=== PATIENT | male | born 1935 | race Caucasian/White ===

== ENCOUNTER 2016-09-13 20:06 | Emergency (ER) | payer OTHER ==
[2016-09-13 20:10] VITALS: BP 116/87; TEMP 97.1; BMI 23.1
[2016-09-13] MEDS ORDERED: DUONEB NEB STA (20:22)
--- NOTE | 2016-09-13 20:35 | ED.PDOC ---
General ED Provider: Dr. LUIS M ALVARADO Chief Complaint: Shortness of Air Stated Complaint: Been short of breath for couple days, it is getting better and its worse today,. not seen doctor for 10-15 years, Time Seen by Physician: 20:29 Mode of Arrival: Walk-In Information Source: Patient, Family Nursing and Triage Documentation Reviewed and Agree: Yes Respiratory Complaint Exam - Shortness of Air Complaint/Exam Symptoms Are: Still present Timing: Constant Initial Severity: Severe Current Severity: Severe Character: Reports: Dyspnea at rest Alleviating: Reports: None Associated Signs and Symptoms: Reports: Cough, Rapid breathing. Denies: Wheezing, Chest pain with cough, Chest pain, Fever, Chills, Diaphoresis, Nasal congestion, Dizziness, Calf pain, Calf swelling, Edema, Labored breathing, Decreased intake History of Healthcare-Acquired Pneumonia: No Pulmonary Embolism Risk Factors: Reports: None Cardiac Risk Factors: Reports: Smoking Pseudomonas Risk Factors: Reports: None Home Oxygen Use: No Recent Stress Test: No Recent Echo/LV Function: No Respiratory Distress: Moderate Stridor Present: No Tracheal Deviation: No Subcutaneous Emphysema: No Accessory Muscle Use: Yes Retractions: Nasal Flaring, Supraclavicular Diminished Breath Sounds: Yes Prolonged Expiratory Phase: No Unable to Speak Full Sentences: No Fatigue: No Leg Swelling: No Differential Diagnoses: COPD Exacerbation, DC, Unstable Angina, Pneumonia Quality Indicators for AMI: EKG in 10min. Review of Systems - Review Of Systems Constitutional: Reports: Malaise, Weakness Eyes: Reports: No symptoms Ears, Nose, Mouth, Throat: Reports: No symptoms Respiratory: Reports: Orthopnea, Short of air Cardiac: Reports: No symptoms GI: Reports: No symptoms : Reports: No symptoms Musculoskeletal: Reports: No symptoms Skin: Reports: No symptoms Neurological: Reports: No symptoms Endocrine: Reports: No symptoms Hematologic/Lymphatic: Reports: No symptoms All Other Systems: Reviewed and Negative Past Medical History - Past Medical History Previously Healthy: Yes Endocrine: Reports: None Cardiovascular: Reports: None Respiratory: Reports: None Hematological: Reports: None Gastrointestinal: Reports: None Genitourinary: Reports: None Neuro/Psych: Reports: None Musculoskeletal: Reports: None Cancer: Reports: None - Surgical History General Surgical History: Reports: Orthopedic (hand repair) - Family History Family History: Reports: None - Social History Smoking Status: Current every day smoker, Heavy tobacco smoker Smoking Cessation Counseling Time: > 10 min Hx Substance Use: No Alcohol Screening: None Physical Exam - Physical Exam Appearance: Ill-appearing, Thin Ill-appearing: Moderate Eyes: ASHANTI, EOMI, Conjunctiva clear ENT: Ears normal, Nose normal, Oropharynx normal Respiratory: Airway patent, Breath sounds diminished Cardiovascular: Tachycardia GI/: Soft, Nontender, No masses, Bowel sounds normal, No Organomegaly Musculoskeletal: Normal strength, ROM intact, No edema, No calf tenderness Skin: Warm, Dry, Normal color Neurological: Sensation intact, Motor intact, Reflexes intact, Cranial nerves intact, Alert, Oriented Psychiatric: Affect appropriate, Mood appropriate Interpretation - Measurement Superintendent Time of Measurement Superintendent Interpretation: 20:30 Rate: Tachy Rhythm: Other (pacs) - EKG Interpretation Time of EKG #1: 20:30 Rate: Tachy Rhythm: Sinus Ectopy: PACs ST Segment: Other (elevation 2,3,avf) Critical Care Note - Critical Care Note Total Time (mins): 0 Course - Course Hematology/Chemistry: 09/13/16 20:30 Orders, Labs, Meds: Lab Review 09/13/16 09/13/16 20:12 20:30 WBC 15.54 H RBC 5.93 Hgb 17.5 Hct 52.0 MCV 87.7 MCH 29.5 MCHC 33.7 RDW Coeff of Isha 12.3 Plt Count 254 Immature Gran % (Auto) 0.6 Neut % (Auto) 85.6 Lymph % (Auto) 6.2 L Bollinger % (Auto) 6.6 Eos % (Auto) 0.6 Baso % (Auto) 0.4 Immature Gran # (Auto) 0.1 Neut # 13.3 H Lymph # 1.0 Bollinger # 1.0 Eos # 0.1 Baso # 0.1 Puncture Site Lb O2 Saturation 93.0 L ABG pH 7.389 ABG pCO2 44.5 ABG pO2 70.0 L ABG HCO3 26.9 H ABG Total CO2 28 ABG Base Excess 2 Yusef Test + O2 Delivery Device Nc Oxygen Liter Flow 2.00 FiO2 % 28.0 Orders Category Date Time Status ABG DRAW REQUEST Stat CARDIO 09/13/16 20:13 Completed EKG-(ED ONLY) Stat CARDIO 09/13/16 20:12 Completed NEBULIZER TREATMENT Stat CARDIO 09/13/16 20:22 Completed ABG Stat LAB 09/13/16 20:12 Completed B-TYPE NATRIURETIC PEPTIDE Stat LAB 09/13/16 20:30 Received BLOOD CULTURE Stat LAB 09/13/16 20:30 Received CBC W/ AUTO DIFF Stat LAB 09/13/16 20:30 Completed COMPREHENSIVE METABOLIC PANEL Stat LAB 09/13/16 20:30 Received CREATINE KINASE Stat LAB 09/13/16 20:30 Received D-DIMER Stat LAB 09/13/16 20:30 Received LACTIC ACID Stat LAB 09/13/16 20:30 Received PROCALCITONIN Stat LAB 09/13/16 20:30 Received TROPONIN I Stat LAB 09/13/16 20:30 Received Aspirin [Aspirin Chewable] MEDS 09/13/16 20:36 Discontinued 324 mg PO ONCE STA Enoxaparin Sodium [Lovenox] MEDS 09/13/16 20:54 Stat 40 mg IVP ONCE STA Enoxaparin Sodium [Lovenox] MEDS 09/13/16 21:00 Ordered 40 mg SUBCUT DAILY Ipratropium/Albuterol Neb [Duoneb] MEDS 09/13/16 20:22 Discontinued 1 vial NEB ONCE STA Morphine Sulfate [Morphine 2 mg/ml Syringe] MEDS 09/13/16 20:36 Discontinued 2 mg IVP ONCE STA CT CHEST W/O CONTRAST Stat RADS 09/13/16 20:22 Taken Medications Generic Name Dose Route Start Last Admin Trade Name Freq PRN Reason Stop Dose Admin Enoxaparin Sodium 40 mg 09/13/16 20:54 Lovenox IVP 09/13/16 20:55 ONCE STA Enoxaparin Sodium 40 mg 09/13/16 21:00 Lovenox SUBCUT DAILY JODI Discontinued Medications Generic Name Dose Route Start Last Admin Trade Name Freq PRN Reason Stop Dose Admin Albuterol/Ipratropium 1 vial 09/13/16 20:22 09/13/16 20:25 Duoneb NEB 09/13/16 20:23 1 vial ONCE STA Administration Aspirin 324 mg 09/13/16 20:36 09/13/16 20:43 Aspirin Chewable PO 09/13/16 20:37 324 mg ONCE STA Administration Morphine Sulfate 2 mg 09/13/16 20:36 09/13/16 20:45 Morphine 2 Mg/Ml Syringe IVP 09/13/16 20:37 2 mg ONCE STA Administration Vital Signs: Temp Pulse Resp BP Pulse Ox 09/13/16 20:06 97.1 F L 126 H 28 H 116/87 92 L Departure - Departure Time of Disposition: 20:39 Disposition: TSF OTHER Discharge Problem: AMI inferior wall, Shortness of breath Instructions: Angina (ED) Condition: Poor Pt referred to PMD for follow-up: No Additional Instructions: Dr Arriaga. Allergies/Adverse Reactions: Allergies No Known Allergies Allergy (Verified 09/13/16 20:10) Home Medications: Ambulatory Orders 1 [No Reported Medications] 09/13/16 Transfer Form Completed: Yes Disposition Discussed With: Patient, Family
[2016-09-13] MEDS ORDERED: ASPIRIN CHEWABLE PO STA (20:36)
[2016-09-13] MEDS ORDERED: MORPHINE 2 MG/ML SYRINGE IVP STA (20:36)
[2016-09-13 20:37] LABS: BASOPHILS # (AUTO) 0.1 K/uL (0-0.2); BASOPHILS % (AUTO) 0.4 % (0.0-3.0); EOSINOPHILS # (AUTO) 0.1 K/ul (0.0-0.7); EOSINOPHILS % (AUTO) 0.6 % (0.0-7.0); HEMOGLOBIN 17.5 g/dl (14.0-18.0); IMMATURE GRANULOCYTE % (AUTO) 0.6 % (0.0-5.0); LYMPHOCYTES % (AUTO) 6.2 (10.0-50.0); MEAN CORPUSCULAR HEMOGLOBIN 29.5 pg (27.0-31.0); MEAN CORPUSCULAR HGB CONC 33.7 (31.8-35.4); MEAN CORPUSCULAR VOLUME 87.7 fl (80.0-94.0); MONOCYTES % (AUTO) 6.6 (0-10); NEUTROPHILS # (AUTO) 13.3 K/ul (2.0-6.9); NEUTROPHILS % (AUTO) 85.6; PLATELET COUNT 254 10^3/uL (140-440); RED BLOOD COUNT 5.93 10^6/ul (4.70-6.10); WHITE BLOOD COUNT 15.54 K/ul (4.2-10.2)
[2016-09-13 20:38] LABS: ABG BASE EXCESS 2 (-2.0-2.0); ABG HCO3 26.9 (22.0-26.0); ABG PCO2 44.5 mmHg (35-45); ABG PH 7.389 (7.35-7.45); ABG TCO2 28 (22.0-28.0)
[2016-09-13] MEDS ORDERED: LOVENOX IVP STA (20:54)
[2016-09-13] MEDS ORDERED: LOVENOX ONE (20:55)
[2016-09-13] MEDS ORDERED: LOVENOX SUBCUT ONE (20:59)
[2016-09-13] MEDS ORDERED: LOVENOX SUBCUT SCH (21:00)
[2016-09-13 21:31] LABS: ALBUMIN 3.9 g/dL (3.4-5.0); ALBUMIN/GLOBULIN RATIO 1.08; ANION GAP 13.3; BILIRUBIN,TOTAL 1.35 mg/dL (0.00-1.20); BUN/CREATININE RATIO 12.24; CALCIUM 9.8 mg/dL (8.2-10.2); CREATININE 0.98 mg/dL (0.60-1.10); POTASSIUM 4.3 mmol/L (3.5-5.1); TOTAL PROTEIN 7.5 g/dL (5.8-8.1)
[2016-09-13 21:37] LABS: CREATINE KINASE MB 148.2 ng/ml (0.0-3.6); TROPONIN I 9.348 ng/ml (0.0000-0.4000)
--- NOTE | 2016-09-13 21:46 | CT ---
EXAM: CT of the chest without contrast. HISTORY: Shortness of breath. PROCEDURE: Contiguous axial CT images of the chest without contrast with coronal and sagittal refor mats. FINDINGS: The heart is within normal limits in size. The thoracic aorta is within normal limits in diameter. There are coronary artery calcifications. There are emphysematous changes throughout both lungs. There is 1 cm nodule in the right middle lobe. There is minimal right basilar dependent atel ectasis. There is a 0.3 cm nodule in the right upper lobe. There are nodular infiltrates in the righ t lower lobe. There is biapical scarring. There are degenerative changes in the spine. Impression: Nodular infiltrates in the right lower lobe suspicious for pneumonia. Minimal right basilar atelectasis. Two nodules in the right lung measuring up to 1 cm. Recommend follow-up CT in [address] ability. Chronic obstructive pulmonary disease.
== END 2016-09-13 21:37 | disposition short-term general hospital (02) ==
LOC: ED 20:06
DX: I21.19 ST elevation (STEMI) myocardial infarction involving other coronary artery of inferior wall (principal); R06.02 Shortness of breath; F17.210 Nicotine dependence, cigarettes, uncomplicated
CPT/HCPCS: 36415; 80053; 82550; 82553; 82803; 83605; 83880; 84145; 84484; 85025; 85379; 87040; 93005; 93010; 94640; 96372; 96374; 96375; 99285

== ENCOUNTER 2016-09-13 21:14 | Outpatient (CLI) ==
[2016-09-13 20:10] VITALS: BMI 23.1
== END 2016-09-13 21:15 | disposition home or self-care (01) ==
LOC: AMBL 21:14
PROVIDERS: ATTEND Emergency Medicine
DX: I21.3 ST elevation (STEMI) myocardial infarction of unspecified site (principal); R06.02 Shortness of breath; R00.0 Tachycardia, unspecified

== ENCOUNTER 2016-10-03 11:39 | Outpatient (CLI) | payer OTHER | END 2016-10-03 11:40 | disposition home or self-care (01) | LOC: AMBL 11:39 | PROVIDERS: ATTEND Emergency Medicine | DX: R06.9 Unspecified abnormalities of breathing (principal); J44.9 Chronic obstructive pulmonary disease, unspecified ==

== ENCOUNTER 2016-10-31 08:52 | Outpatient (RCR) ==
[2016-10-31 09:16] VITALS: TEMP 98.4; BMI 19.2
[2016-11-16 10:51] VITALS: BP 114/52
== END 2016-11-16 ==
LOC: CAR.REHAB 08:52
PROVIDERS: ATTEND Internal Medicine Cardiovascular Disease
DX: I21.3 ST elevation (STEMI) myocardial infarction of unspecified site (principal); Z95.5 Presence of coronary angioplasty implant and graft
CPT/HCPCS: 93798

== ENCOUNTER 2016-11-17 10:59 | Outpatient (RCR) ==
[2016-12-16 10:55] VITALS: BP 106/54
== END 2016-12-16 ==
LOC: CAR.REHAB 10:59
PROVIDERS: ATTEND Internal Medicine Cardiovascular Disease
DX: I21.3 ST elevation (STEMI) myocardial infarction of unspecified site (principal); Z95.5 Presence of coronary angioplasty implant and graft
CPT/HCPCS: 93798

== ENCOUNTER 2016-12-19 06:56 | Outpatient (RCR) ==
[2017-01-16 10:46] VITALS: BP 112/64
== END 2017-01-16 ==
LOC: CAR.REHAB 06:56
PROVIDERS: ATTEND Internal Medicine Cardiovascular Disease
DX: I21.3 ST elevation (STEMI) myocardial infarction of unspecified site (principal); Z95.5 Presence of coronary angioplasty implant and graft
CPT/HCPCS: 93798

== ENCOUNTER 2017-01-17 08:29 | Outpatient (RCR) ==
[2017-02-10 11:12] VITALS: BP 108/56
== END 2017-02-10 14:34 | disposition home or self-care (01) ==
LOC: CAR.REHAB 08:29
PROVIDERS: ATTEND Internal Medicine Cardiovascular Disease
DX: I25.2 Old myocardial infarction (principal); Z95.5 Presence of coronary angioplasty implant and graft
CPT/HCPCS: 93798

== ENCOUNTER 2017-02-13 09:16 | Outpatient (RCR) ==
[2017-02-15 10:44] VITALS: BP 108/56
== END 2017-02-16 ==
LOC: CAR.REHAB 09:16
PROVIDERS: ATTEND Internal Medicine
DX: I25.10 Atherosclerotic heart disease of native coronary artery without angina pectoris (principal); I25.2 Old myocardial infarction; Z95.5 Presence of coronary angioplasty implant and graft
CPT/HCPCS: 93797

== ENCOUNTER 2017-02-17 07:20 | Outpatient (RCR) ==
[2017-03-17 10:53] VITALS: BP 114/58
== END 2017-03-18 ==
LOC: CAR.REHAB 07:20
PROVIDERS: ATTEND Internal Medicine
DX: I25.10 Atherosclerotic heart disease of native coronary artery without angina pectoris (principal); I21.3 ST elevation (STEMI) myocardial infarction of unspecified site; Z95.5 Presence of coronary angioplasty implant and graft
CPT/HCPCS: 93797

== ENCOUNTER 2017-04-19 07:04 | Outpatient (RCR) ==
[2017-05-17 10:57] VITALS: BP 116/56
== END 2017-05-18 ==
LOC: CAR.REHAB 07:04
PROVIDERS: ATTEND Internal Medicine
DX: I25.10 Atherosclerotic heart disease of native coronary artery without angina pectoris (principal); I25.2 Old myocardial infarction; Z95.5 Presence of coronary angioplasty implant and graft
CPT/HCPCS: 93797

== ENCOUNTER 2017-05-19 06:32 | Outpatient (RCR) ==
[2017-06-07 10:48] VITALS: BP 130/56
== END 2017-06-18 ==
LOC: CAR.REHAB 06:32
PROVIDERS: ATTEND Internal Medicine
DX: I25.10 Atherosclerotic heart disease of native coronary artery without angina pectoris (principal); I25.2 Old myocardial infarction; Z95.5 Presence of coronary angioplasty implant and graft
CPT/HCPCS: 93797

== ENCOUNTER 2017-06-20 07:02 | Outpatient (RCR) | END 2017-07-19 | LOC: CAR.REHAB 07:02 | PROVIDERS: ATTEND Internal Medicine | DX: I25.10 Atherosclerotic heart disease of native coronary artery without angina pectoris (principal); I25.2 Old myocardial infarction; Z95.5 Presence of coronary angioplasty implant and graft ==

== ENCOUNTER 2017-07-20 07:22 | Outpatient (RCR) | END 2017-08-16 | LOC: CAR.REHAB 07:22 | PROVIDERS: ATTEND Internal Medicine | DX: I25.10 Atherosclerotic heart disease of native coronary artery without angina pectoris (principal); I25.2 Old myocardial infarction; Z95.5 Presence of coronary angioplasty implant and graft ==

== ENCOUNTER 2017-08-17 07:02 | Outpatient (RCR) | END 2017-09-16 | LOC: CAR.REHAB 07:02 | PROVIDERS: ATTEND Internal Medicine | DX: I25.10 Atherosclerotic heart disease of native coronary artery without angina pectoris (principal); I25.2 Old myocardial infarction; Z95.5 Presence of coronary angioplasty implant and graft ==

== ENCOUNTER 2017-09-18 06:46 | Outpatient (RCR) | END 2017-09-29 10:49 | disposition home or self-care (01) | LOC: CAR.REHAB 06:46 | PROVIDERS: ATTEND Internal Medicine | DX: I25.10 Atherosclerotic heart disease of native coronary artery without angina pectoris (principal); I25.2 Old myocardial infarction; Z95.5 Presence of coronary angioplasty implant and graft ==